=== PATIENT | male | born 1970 | race Caucasian/White ===

== ENCOUNTER 2016-10-09 18:23 | Emergency (ER) | payer MEDICAID, OTHER ==
[~2016-10-09] VITALS: Ht 172.7 cm; Wt 87.0 kg
[2016-10-09 18:30] VITALS: Ht 172.7 cm; Wt 87.0 kg
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
--- NOTE | 2016-10-09 19:58 | RADRPT ---
PROCEDURE: CT Brain without contrast. CLINICAL INDICATION: Head contusion. TECHNIQUE: A CT of the brain was performed on a multidetector CT scanner utilizing axial sections from the skull base through the vertex without contrast. Images were reviewed on a high-resolution [employer] workstation. Exam CTDI = 43.58 mGy and the DLP = 720.23 mGy-cm. One or more of the following dose reduction techniques were used: Automated exposure control Adjustment of the mA and/or kV according to patient size. Use of iterative reconstruction technique. COMPARISON: None available FINDINGS: There is no evidence of intracranial hemorrhage, mass effect or midline shift. No abnormal intra-ax ial or extra-axial fluid collections are seen. The density of the brain is normal and the matthews/whit e matter differentiation is well preserved. The osseous structures are unremarkable. The paranasal sinuses are clear. IMPRESSION: 1. No intracranial hemorrhage, mass effect or midline shift. RPTAT: HHO .Houston Mar MD, MD Date Time Electronically viewed and signed by .Houston Mar MD, on 10/09/2016 19:57 .O/
--- NOTE | 2016-10-09 20:05 | RADRPT ---
PROCEDURE: CT Cervical Spine. CLINICAL INDICATION: Neck pain status post trauma TECHNIQUE: A CT of the cervical spine was performed on a multi-slice CT scanner utilizing high-res olution axial imaging from the skull base through the cervical thoracic junction. Sagittal, coronal , and multiplanar reformatted images were made. CTD I: 22.29 mGy and DLP: 530.55 mGy-cm One or more of the following dose reduction techniques were used: Automated exposure control. Adjustment of the mA and/or kV according to patient size. Use of iterative reconstruction technique. COMPARISON: None FINDINGS: There is a normal lordosis of the cervical spine. No vertebral body subluxation is seen. No fractu res are evident. Age indeterminate mild compression fractures of C6, C7, T1 and T2 vertebral bodies. The posterior elements are normally aligned. The surrounding soft tissues are normal in appearanc e. The intervertebral discs are normal in height. No significant disk bulge or protrusion is seen. The central canal and foramina are adequately patent at all levels. There are degenerative changes involving the first bilateral costovertebral joints. IMPRESSION: 1. No acute fracture or traumatic malalignment. 2. Age indeterminate mild compression fractures of C6-T2 favored to be chronic in nature. No signi ficant retropulsion. 3. The central canal and neural foramina are adequately patent at all levels. RPTAT: HHO .Houston Mar MD, MD Date Time Electronically viewed and signed by .Houston Mar MD, MD on 10/09/2016 20:04 .O/
[2016-10-09] MEDS ORDERED: HYDR-906 PO (20:25)
[2016-10-09] MEDS ORDERED: CYCL-319 PO (20:25)
[2016-10-09] MEDS ORDERED: ACET500C5 PO (20:25)
[2016-10-09 21:34] VITALS: BP 135/77; PULSE 66; RESP 20; TEMP 98.7
== END 2016-10-09 21:35 | disposition home or self-care (01) ==
LOC: FTE 18:23
DX: S16.1XXA Strain of muscle, fascia and tendon at neck level, initial encounter (principal); S00.03XA Contusion of scalp, initial encounter; V49.40XA Driver injured in collision with unspecified motor vehicles in traffic accident, initial encounter
CPT/HCPCS: 70450; 72125; Z7502